=== PATIENT | female | born 1990 | race African-American/Black ===

== ENCOUNTER 2018-11-14 20:49 | Inpatient (IN) | payer SELFPAY ==
[~2018-11-14] VITALS: Ht 157.5 cm; Wt 64.4 kg
[2018-11-14] MEDS ORDERED: MULT-1146 MT (21:42)
[2018-11-14] MEDS ORDERED: DEXT 5%/LACTATED RINGERS 1,000 ML IV SCH (23:30)
[2018-11-14] MEDS ORDERED: MISOPROSTOL 100MCG TABLET VG SCH (23:30)
[2018-11-14] MEDS ORDERED: LIDOCAINE HCL 1% 20ML VIAL (Pyxis) INJ INFIL SCH (23:30)
[2018-11-14] MEDS ORDERED: METHYLERGONOVINE MALEATE 0.2 MG/ML IM PRN (23:30)
[2018-11-14] MEDS ORDERED: CARBOPROST TROMETHAMINE 250 MCG/ML AMPUL IM PRN (23:30)
[2018-11-14] MEDS ORDERED: DEXT 5%/LR + PITOCIN 20UNITS/L 1,000 ML IV SCH (23:30)
[2018-11-14] MEDS ORDERED: NALOXONE HCL 0.4 MG/ML 1ML VIAL IM PRN (23:30)
[2018-11-15] MEDS ORDERED: PENICILLIN G POTASSIUM 5 MMU in DEXT 5% WATER 100 ML IV SCH ×2
[2018-11-15] MEDS: LACTATED RINGERS 1,000 ML IV SCH ×3 (01:36→16:12)
[2018-11-15 02:37] LABS: CLARITY URINE CLEAR (CLEAR); COLOR URINE YELLOW (YELLOW); KETONES URINE NEGATIVE (NEGATIVE); LEUKOCYTE ESTERASE URINE 1+ (NEGATIVE); NITRITE URINE NEGATIVE (NEGATIVE); OCCULT BLOOD URINE NEGATIVE (NEGATIVE); PROTEIN URINE NEGATIVE (NEGATIVE); SPECIFIC GRAVITY URINE 1.016 (1.005-1.030); UROBILINOGEN URINE 0.2 E.U./dL (0.2-1.0)
[2018-11-15 02:41] LABS: BASOPHILS % 0.4 % (0.0-2.0); EOSINOPHILS % 2.3 % (0.0-5.0); HEMATOCRIT. 35.3 % (36.0-48.0); HEMOGLOBIN. 12.2 g/dL (12.0-16.0); LYMPHOCYTES % 19.4 % (20.0-50.0); MEAN CORPUSCULAR HEMOGLOBIN 29.9 pg (28.0-32.0); MEAN CORPUSCULAR VOLUME 86.7 fL (81.0-99.0); MEAN PLATELET VOLUME 7.9 fl (7.4-10.4); MONOCYTES % 9.4 % (2.0-8.0); NEUTROPHILS % 68.5 % (40.0-76.0); PLATELET 341 x1000/uL (130-400); RED BLOOD CELL COUNT 4.08 mill/uL (4.2-5.4)
[2018-11-15 02:46] LABS: *AMPHETAMINES SCREEN URINE NEGATIVE (NEGATIVE); *BARBITURATES SCREEN URINE NEGATIVE (NEGATIVE); *BENZODIAZEPINES SCREEN URINE NEGATIVE (NEGATIVE); CANNABINOID URINE SCREEN NEGATIVE (NEGATIVE)
[2018-11-15 02:47] LABS: *COCAINE SCREEN URINE NEGATIVE (NEGATIVE); METHADONE URINE SCREEN NEGATIVE (NEGATIVE); OPIATES URINE SCREEN NEGATIVE (NEGATIVE); PARTIAL THROMBOPLASTIN TIME 29.1 sec (23.4-31.0); PHENCYCLIDINE URINE SCREEN NEGATIVE (NEGATIVE); PROTHROMBIN TIME 9.7 sec (9.1-11.1)
[2018-11-15 03:12] LABS: HEPATITIS B SURFACE ANTIGEN NEGATIVE
[2018-11-15] MEDS: BUTORPHANOL TARTRATE 2 MG/ML VIAL IV PRN ×3 (05:31→20:05)
[2018-11-15] MEDS: PENICILLIN G POTASSIUM 2.5 MMU in DEXTROSE 5% WATER 50 ML IV SCH ×4 (07:37→20:10)
[2018-11-16] MEDS ORDERED: BUTORPHANOL TARTRATE 2 MG/ML VIAL IV PRN ×2 (00:45→13:15)
[2018-11-16] MEDS: PENICILLIN G POTASSIUM 2.5 MMU in DEXTROSE 5% WATER 50 ML IV SCH (02:44)
[2018-11-16] MEDS ORDERED: PENICILLIN G POTASSIUM 2.5 MMU in DEXTROSE 5% WATER 50 ML IV SCH (06:30)
[2018-11-16] MEDS ORDERED: FENTANYL CITRATE/PF 50MCG/ML 2ML VIAL ONE (07:17)
[2018-11-16] MEDS ORDERED: MORPHINE SULFATE/PF 1MG/ML 10ML AMP ONE (07:17)
[2018-11-16] MEDS ORDERED: PHENYLEPHRINE HCL 10 MG/ML 1ML (IV VIAL) IV ONE (07:18)
[2018-11-16] MEDS ORDERED: BUPIVACAINE HCL/DEXTROSE/PF 0.75% 2ML AMP INJ ONE (07:18)
[2018-11-16] MEDS ORDERED: OXYTOCIN 10 UNITS/ML 1ML ONE (07:19)
[2018-11-16] MEDS ORDERED: CEFAZOLIN SODIUM 1000MG/VIAL ONE (07:19)
[2018-11-16] MEDS ORDERED: EPHEDRINE SULFATE 50MG/ML VIAL ONE (07:19)
[2018-11-16] MEDS ORDERED: SODIUM CHLORIDE 0.9% 10ML VIAL ONE (07:20)
[2018-11-16] MEDS ORDERED: CITRIC ACID/SODIUM CITRATE SOLN 30ML UDC PO SCH (07:30)
[2018-11-16] MEDS ORDERED: DIPHENHYDRAMINE 50MG/ML VIAL ONE (10:26)
[2018-11-16] MEDS ORDERED: KETOROLAC 60MG/2ML VIAL IM ONE (10:31)
[2018-11-16] MEDS ORDERED: DEXT 5%/LR + PITOCIN 20UNITS/L 1,000 ML IV SCH (11:40)
[2018-11-16] MEDS ORDERED: RHO(D) IMMUNE GLOBULIN 300 MCG/SYR IM PRN (11:45)
[2018-11-16] MEDS ORDERED: IBUPROFEN 400MG TABLET PO PRN (11:45)
[2018-11-16] MEDS ORDERED: ONDANSETRON HCL 4MG/2ML INJ IV PRN (11:45)
[2018-11-16 13:10] VITALS: BP 100/56
[2018-11-16] MEDS ORDERED: NALOXONE HCL 0.4 MG/ML 1ML VIAL IV PRN (13:15)
[2018-11-16] MEDS ORDERED: KETOROLAC 30MG/ML VIAL IV PRN (13:15)
[2018-11-16] MEDS ORDERED: DIPHENHYDRAMINE 50MG/ML VIAL IV PRN (13:15)
[2018-11-16 16:00] VITALS: BP_SYST 111; BP_SYST 124; BP_DIAS 60; BP_DIAS 65
[2018-11-16 20:00] VITALS: BP 118/69
[2018-11-17] VITALS: BP 120/68
[2018-11-17 04:00] VITALS: BP 118/67
[2018-11-17 07:35] LABS: BASOPHILS % 0.5 % (0.0-2.0); EOSINOPHILS % 1.7 % (0.0-5.0); HEMATOCRIT. 30.2 % (36.0-48.0); HEMOGLOBIN. 10.3 g/dL (12.0-16.0); LYMPHOCYTES % 16.5 % (20.0-50.0); MEAN CORPUSCULAR HEMOGLOBIN 29.7 pg (28.0-32.0); MEAN PLATELET VOLUME 7.3 fl (7.4-10.4); MONOCYTES % 8.7 % (2.0-8.0); NEUTROPHILS % 72.6 % (40.0-76.0); PLATELET 265 x1000/uL (130-400); RED BLOOD CELL COUNT 3.47 mill/uL (4.2-5.4); RED CELL DISTRIBUTION WIDTH 13.8 % (11.6-14.6)
[2018-11-17 08:00] VITALS: BP 116/71
[2018-11-17] MEDS: PRENATAL VIT/FE FUMARATE/FA TABLET PO SCH (09:15)
[2018-11-17] MEDS: HYDROCODONE/ACETAMINOPHEN 5/325MG TABLET PO PRN (09:16)
[2018-11-17 16:00] VITALS: BP 126/74
[2018-11-17] MEDS: DOCUSATE SODIUM 100MG CAPSULE PO SCH ×2 (19:58→21:00)
[2018-11-17] MEDS: LANOLIN OINT 0.25 GM TUBE TOP PRN (19:59)
[2018-11-17 22:00] VITALS: BP 128/68
[2018-11-18 05:00] VITALS: BP 112/64
[2018-11-18 08:00] VITALS: BP 115/56
[2018-11-18] MEDS: PRENATAL VIT/FE FUMARATE/FA TABLET PO SCH (09:05)
[2018-11-18 14:00] VITALS: BP 118/67
[2018-11-18] MEDS: HYDROCODONE/ACETAMINOPHEN 5/325MG TABLET PO PRN (14:01)
[2018-11-18] MEDS: LANOLIN OINT 0.25 GM TUBE TOP PRN (15:42)
[2018-11-18 21:45] VITALS: BP 108/61
[2018-11-19 04:10] VITALS: BP 106/64
[2018-11-19] MEDS: HYDROCODONE/ACETAMINOPHEN 5/325MG TABLET PO PRN (04:42)
[2018-11-19 08:00] VITALS: BP 112/64
[2018-11-19] MEDS: PRENATAL VIT/FE FUMARATE/FA TABLET PO SCH (09:00)
== END 2018-11-19 12:00 | disposition home or self-care (01) | DRG 540 ==
LOC: OBSVTOIN 20:49 → 8 EST LDRP 20:49 → 8EST 11-16 15:05
PROVIDERS: ADMIT Obstetrics & Gynecology; ATTEND Obstetrics & Gynecology
PROC: 10D00Z1 Extraction of Products of Conception, Low, Open Approach (ICD-10-PCS; principal; 2018-11-16)
DX: O32.4XX0 Maternal care for high head at term, not applicable or unspecified (principal); D62 Acute posthemorrhagic anemia; O99.02 Anemia complicating childbirth; O34.13 Maternal care for benign tumor of corpus uteri, third trimester; D25.0 Submucous leiomyoma of uterus; Z37.0 Single live birth; Z3A.38 38 weeks gestation of pregnancy; R20.2 Paresthesia of skin; O90.89 Other complications of the puerperium, not elsewhere classified
CPT/HCPCS: 36415; 80305; 86592; 86703; 86762; 86850; 86900; 86920; 87340; 88307; 99281; G0378; J0595; J0690; J1200; J1885; J2274; J2370; J2540; J2590; J3010; J3490; J7060; J7121